=== PATIENT | female | born 1960 | race Caucasian/White ===

== ENCOUNTER 2020-03-16 17:15 | Inpatient (IN) | payer OTHER, BC ==
--- NOTE | 2020-03-16 18:28 | PDOC ---
History of Present Illness - General Chief Complaint: Pain, Acute Stated Complaint: PAIN IN LEGS Time Seen by Provider: 03/16/20 18:16 History Source: Patient - History of Present Illness Timing/Duration: other Past History - Medical History Allergies/Adverse Reactions: Allergies Allergy/AdvReac Type Severity Reaction Status Date / Time erythromycin base AdvReac Verified 03/16/20 17:47 - Reproductive History Is Patient Now?: No - Psycho-Social/Smoking History Smoking History: Never smoked Information on smoking cessation initiated: No - Substance Abuse Hx (Audit-C & DAST Scrn) How often the patient has a drink containing alcohol: Never Score: In Men: 4 or > Positive; In Women: 3 or > Positive: 0 Screen Result (Pos requires Nsg. Audit-10AR): Negative In the last yr the pt used illegal drug/Rx for NonMed reason: No Score: Yes response is considered Positive: 0 Screen Result (Positive result requires Nsg. DAST-10): Negative Review of Systems - Review of Systems Constitutional: No: Chills, Fever Respiratory: No: Cough, Shortness of Breath ABD/GI: No: Nausea, Vomiting, Abdominal cramping : No: Dysuria Neurological: No: Headache, Numbness, Paresthesia, Tingling, Weakness, Dizziness *Physical Exam - Vital Signs Last Vital Signs Temp Pulse Resp BP Pulse Ox 98.1 F 77 17 105/56 L 99 03/16/20 17:46 03/16/20 17:46 03/16/20 17:46 03/16/20 17:46 03/16/20 17:46 - Physical Exam 03/16/20 18:28 chronically ill lashay female, walking very slowly w/ assistance of boyfriend, into exam room General Appearance: Yes: Appropriately Dressed. No: Apparent Distress HEENT: positive: Normal Voice Neck: positive: Supple Respiratory/Chest: negative: Respiratory Distress Extremity: positive: Normal Inspection, Normal Range of Motion, Tender. n egative: Swelling Integumentary: positive: Dry, Warm Neurologic: positive: Fully Oriented, Alert, Normal Mood/Affect, Motor Strength 5/5 ED Treatment Course - LABORATORY CBC & Chemistry Diagram: 03/16/20 19:20 03/16/20 19:20 - RADIOLOGY Radiology Studies Ordered: Category Date Time Status CHEST X-RAY PORTABLE* [RAD] Stat Radiology 03/16/20 18:21 Ordered Medical Decision Making - Medical Decision Making 03/16/20 18:23 59 yo F, post menopausal, asthma, pulm sarcoids, not on steroids, MS dx in 2009, administer copaxone injection 3 times a week at home, resides in [place] and f/u with neuro there, has not been admitted for MS in last 2 years but was admitted at least once a year prior to that, presents with diffuse pain to bilateral upper and lower extremities that started 3 days ago and now difficulty ambulating. Also reports feeling "foggy", c/w her MS. Patient states the reason why she came to this ER for the first time is because she was staying with her boyfriend who resides in [place] see exam MS flare w/ difficult gait Not known to [facility] On Copaxone and resides in [place] -labs -neuro>steroids -admit 03/16/20 19:[address] Nam of neuro who recommends 1 dose of Solu-Medrol 250 IV and MRI brain (+/-) contrast. Pending labs to admit patient 03/16/20 20:23 UTI on labs, WBC wnl. Will tx w/ po abx, no prior sen on records here. Will admi t at this time Discharge - Discharge Information Problems reviewed: Yes Clinical Impression/Diagnosis: Multiple sclerosis exacerbation, Gait difficulty Extremity pain Qualifiers: Extremity pain location: unspecified extremity Qualified Code(s): M79.609 - Pain in unspecified limb UTI (urinary tract infection) Qualifiers: Urinary tract infection type: site unspecified Hematuria presence: without hematuria Qualified Code(s): N39.0 - Urinary tract infection, site not specified Condition: Stable - Admission Yes - Follow up/Referral Referrals: ON STAFF,NOT [Primary Care Provider] - - Patient Discharge Instructions - Post Discharge Activity
[2020-03-16] MEDS ORDERED: methylPREDNISolone NA SUCC 125 MG/2 ML VIAL IVPUSH ONE (19:32)
[2020-03-16 19:51] LABS: BASO % 1.2 % (0-2.0); EOS % 4.8 % (0-4.5); HEMOGLOBIN 14.2 GM/dL (10.7-15.3); LYMPH % 35.6 % (8-40); MCH 32.5 pg (25.7-33.7); MEAN CELL VOLUME 95.6 fl (80-96); MEAN PLT VOLUME 9.7 fl (7.5-11.1); MONO % 7.1 % (3.8-10.2); NEUT % 51.3 % (42.8-82.8); PLATELET COUNT 212 K/MM3 (134-434); RBC 4.39 M/mm3 (3.60-5.2); WHITE BLOOD COUNT 4.7 K/mm3 (4.0-10.0)
[2020-03-16 19:58] LABS: EPI CELLS 8 /uL (0-25.1); HYALINE CASTS 5 /uL (0-3.1); PH,URINE 5.5 (5.0-8.0); URINE APPEARANCE CLOUDY; URINE BACTERIA >9,000 /uL (0-1359); URINE BILIRUBIN NEGATIVE (NEGATIVE); URINE COLOR YELLOW; URINE GLUCOSE (UA) NEGATIVE (NEGATIVE); URINE KETONE NEGATIVE (NEGATIVE); URINE LEUK ESTERASE 2+ (NEGATIVE); URINE NITRITE POSITIVE (NEGATIVE); URINE PROTEIN NEGATIVE (NEGATIVE); URINE RBC 4 /uL (0-23.9); URINE UROBILINOGEN 0.2 mg/dL (0.2-1.0); URINE WBC 164 /uL (0-25.8)
[2020-03-16 20:11] LABS: ALBUMIN 4.2 g/dl (3.4-5.0); BILIRUBIN,TOTAL 0.5 mg/dL (0.2-1); BLOOD UREA NITROGEN 12.8 mg/dL (7-18); CALCIUM 9.4 mg/dL (8.5-10.1); CREATININE 0.9 mg/dL (0.55-1.3); POTASSIUM 4.6 mmol/L (3.5-5.1); TOT PROT 7.4 g/dl (6.4-8.2)
[2020-03-16] MEDS ORDERED: NITROFURANTOIN MACROCRYSTAL 50 MG CAPSULE (FP) PO SCH (20:30)
[2020-03-16] MEDS ORDERED: NITROFURANTOIN MACROCRYSTAL 50 MG CAPSULE (FP) ONE (20:31)
--- NOTE | 2020-03-16 21:00 | PN ---
Teaching Attending Note Name of Resident: Juliana Sandy ATTENDING PHYSICIAN STATEMENT I saw and evaluated the patient. I reviewed the resident's note and discussed the case with the resident. I agree with the resident's findings and plan as documented. SUBJECTIVE: Patient is a 59 year old woman with PMH of Multiple sclerosis (since 2009), Asthma and Pulmonary sarcoidosis who presents to the ER with diffuse upper and lower extremity pain for 3 days and now associated with difficulty ambulating. Also reports feeling "foggy" and had chills. Takes Copaxone injection 3 times a week at home for MS. Lives in [place] and is visiting her boyfriend in [place]. Has not been admitted for MS in last 2 years but was admitted at least once a year prior to that. Patient denies chest pain, shortness of breath, abdominal pain, headache, palpitations, dizziness, fever, nausea, vomiting, diarrhea, constipation, dysuria, frequency, urgency, melena, hematochezia or hematuria. Denies alcohol, tobacco or illicit drug use. No sick contacts or recent travels. Family history of heart disease in mother. OBJECTIVE: Alert Vital Signs Period Temp Pulse Resp BP Sys/Adams Pulse Ox Last 24 Hr 98.1 F 77 17 105/56 99 HEENT: No Jaundice, eye redness or discharge, PERRLA, EOMI. Normocephalic, atraumatic. External ears are normal and hearing is grossly intact. No nasal discharge. Neck: Supple, nontender. No palpable adenopathy or thyromegaly. No JVD Chest: Good effort. Clear to auscultation and percussion. Heart: Regular. No S3, rub or murmur Abdomen: Not distended, soft, nontender and no HSM. No rebound or guarding. Normal bowel sounds. Ext: Peripheral pulses intact. No leg edema. Skin: Warm and dry. No petechiae, rash or ecchymosis. Neuro: Alert. Oriented x3. CN 2-12 grossly intact. Sensation grossly intact in all four extremities and DTR are symmetric. Gait not tested for safety reasons. Psych: Appropriate mood and affect. Good insight. Abnormal Lab Results 03/16/20 03/16/20 03/16/20 19:20 19:20 19:20 Eosinophils % 4.8 H Chloride 110 H Anion Gap 5 L AST 13 L Urine Nitrite Positive H Ur Leukocyte Esterase 2+ H Current Medications Generic Name Dose Route Start Last Admin Trade Name Freq PRN Reason Stop Dose Admin Enoxaparin Sodium 40 mg 03/17/20 10:00 Lovenox - SQ DAILY ARANZA Ceftriaxone Sodium 1 gm/ 50 mls @ 100 mls/hr 03/17/20 10:00 Dextrose IVPB DAILY ARANZA ASSESSMENT AND PLAN: 1. Multiple sclerosis flare up/UTI - No acute abnormality on CXR. Official report of brain MRI pending. Will strive to get her prior MRI from [place] for comparison. ER staff consulted Neurology and patient started on Solumedrol 250 mg IV q 6 hours. Will give Protonix 40 mg po qd, treat UTI with IV Ceftriaxone 1 gm q 24 hours and implement fall precautions. Viral testing for COVID-19 ordered and patient placed on airborne, droplet and contact isolation. EKG shows sinus bradycardia at 58/minute, LVH and QTc 467 with no significant acute ischemic ST- T wave changes. No old EKG available for comparison. 2. DVT prophylaxis - Lovenox 40 mg SQ q 24 hours. 3. Advance directives - Full code
--- NOTE | 2020-03-16 21:01 | HP ---
CHIEF COMPLAINT: body aches PCP: not on staff, [place] HISTORY OF PRESENT ILLNESS: 59 yo F PMH MS , Pulmonary sarcoidosis, asthma presents to ED with diffuse body pains and weakness. Pt states that this is typically how she feels when she gets her MS flairs, her last flair was November 27 . Typically her MS flairs involve her upper extremities. she states that this time she is experiencing severe lower back, lower extremity pain. She takes Capoxone every 3 days- last taken on thursday. She follows up with physicians in [place] as that is where she is from. [facility]. ER course was notable for: (1) MRI brain (2)UA: + UTI (3)250 mg solumedrol Recent Travel:denies PAST MEDICAL HISTORY:see above PAST SURGICAL HISTORY: Family Hx: mother with congenital heart disease Social History: Smoking:denies Alcohol:denies Drugs: denies Allergies erythromycin base Adverse Reaction (Verified 03/16/20 17:47) HOME MEDICATIONS: REVIEW OF SYSTEMS CONSTITUTIONAL: Presant: weakness Absent: fever, chills, diaphoresis, malaise, loss of appetite, weight change HEENT: Absent: rhinorrhea, nasal congestion, throat pain, throat swelling, difficulty swallowing, mouth swelling, ear pain, eye pain, visual changes CARDIOVASCULAR: Absent: chest pain, syncope, palpitations, irregular heart rate, lightheadedness, peripheral edema RESPIRATORY: Absent: cough, shortness of breath, dyspnea with exertion, orthopnea, wheezing, stridor, hemoptysis GASTROINTESTINAL: Absent: abdominal pain, abdominal distension, nausea, vomiting, diarrhea, constipation, melena, hematochezia GENITOURINARY: Absent: dysuria, frequency, urgency, hesitancy, hematuria, flank pain, genital pain MUSCULOSKELETAL: Absent: myalgia, arthralgia, joint swelling, back pain, neck pain SKIN: Absent: rash, itching, pallor HEMATOLOGIC/IMMUNOLOGIC: Absent: easy bleeding, easy bruising, lymphadenopathy, frequent infections ENDOCRINE: Absent: unexplained weight gain, unexplained weight loss, heat intolerance, cold intolerance NEUROLOGIC: Absent: headache, focal weakness or paresthesias, dizziness, unsteady gait, seizure, mental status changes, bladder or bowel incontinence PHYSICAL EXAMINATION Vital Signs - 24 hr 03/16/20 17:46 Temperature 98.1 F Pulse Rate 77 Respiratory 17 Rate Blood Pressure 105/56 L O2 Sat by Pulse 99 Oximetry (%) GENERAL: Awake, alert, and fully oriented, in no acute distress. HEAD: Normal with no signs of trauma. EYES: Pupils equal, round and reactive to light, extraocular movements intact EARS, NOSE, THROAT: oropharynx clear without exudates. Moist mucous membranes. NECK: Normal range of motion, supple without lymphadenopathy, JVD, or masses. LUNGS: Breath sounds equal, clear to auscultation bilaterally. No accessory muscle use. HEART: Regular rate and rhythm, normal S1 and S2 without murmur, rub or gallop. ABDOMEN: Soft, nontender, not distended, normoactive bowel sounds, no guarding MUSCULOSKELETAL: No bony deformities or tenderness. No CVA tenderness. UPPER EXTREMITIES: 2+ pulses, warm, well-perfused. No cyanosis. No clubbing. No peripheral edema. LOWER EXTREMITIES: 2+ pulses, warm, well-perfused. No calf tenderness. No peripheral edema. NEUROLOGICAL: Cranial nerves II-XII intact. Normal speech. PSYCHIATRIC: Cooperative. Good eye contact. Appropriate mood and affect. SKIN: Warm, dry, normal turgor, no rashes or lesions noted, normal capillary refill. Laboratory Results - last 24 hr 03/16/20 03/16/20 03/16/20 19:20 19:20 19:20 WBC 4.7 RBC 4.39 Hgb 14.2 Hct 42.0 MCV 95.6 MCH 32.5 MCHC 34.0 RDW 13.0 Plt Count 212 MPV 9.7 Absolute Neuts (auto) 2.4 Neutrophils % 51.3 Lymphocytes % 35.6 Monocytes % 7.1 Eosinophils % 4.8 H Basophils % 1.2 Nucleated RBC % 0 Sodium 142 Potassium 4.6 Chloride 110 H Carbon Dioxide 27 Anion Gap 5 L BUN 12.8 Creatinine 0.9 Est GFR (CKD-EPI)AfAm 82.26 Est GFR (CKD-EPI)NonAf 70.98 Random Glucose 90 Calcium 9.4 Total Bilirubin 0.5 AST 13 L ALT 17 Alkaline Phosphatase 75 Total Protein 7.4 Albumin 4.2 Urine Color Yellow Urine Appearance Cloudy Urine pH 5.5 Ur Specific [place] 1.016 Urine Protein Negative Urine Glucose (UA) Negative Urine Ketones Negative Urine Blood Negative Urine Nitrite Positive H Urine Bilirubin Negative Urine Urobilinogen 0.2 Ur Leukocyte Esterase 2+ H Urine WBC (Auto) 164 Urine RBC (Auto) 4 Urine Casts (Auto) 5 U Epithel Cells (Auto) 8 Urine Bacteria (Auto) >9,000 Brain MRI: Multiple foci of increased signal in the periventricular white matter probably related to the known diagnosis of demyelination. None of these lesions enhance with contrast. There are no intra or extra-axial masses or collections. ASSESSMENT/PLAN: 59 yo F PMH MS, Pulmonary sarcoidosis, asthma presents to ED with diffuse body pains and weakness. admitted for acute MS flair diffuse body pains and weakness likely 2/2 Acute MS flair - c/w steroids as per neuro recs -Brain MRI noted above - neuro consulted. - will send covid 19 - will send TSH UTI -+UA - pending UCx - will start rocephin Asthma - currently Asymptomatic but continue to monitor - ventolin pump prn F/E/N - no standing fluids - monitor lytes - sodium controlled diet DVT ppx: lovenox GI ppx: protonix admit to medicine ATTENDING PHYSICIAN STATEMENT I saw and evaluated the patient. I reviewed the resident's note and discussed the case with the resident. I agree with the resident's findings and plan as documented. SUBJECTIVE: OBJECTIVE: ASSESSMENT AND PLAN:
[2020-03-16] MEDS ORDERED: KETOROLAC TROMETHAMINE 15 MG/ML VIAL IVPUSH ONE (23:32)
[2020-03-17] MEDS ORDERED: KETOROLAC TROMETHAMINE 15 MG/ML VIAL ONE (01:01)
[2020-03-17 06:09] LABS: BASO % 0.5 % (0-2.0); EOS % 0.1 % (0-4.5); HEMOGLOBIN 13.9 GM/dL (10.7-15.3); LYMPH % 19.1 % (8-40); MCH 32.1 pg (25.7-33.7); MCHC 33.9 g/dl (32.0-36.0); MEAN CELL VOLUME 94.8 fl (80-96); MEAN PLT VOLUME 9.5 fl (7.5-11.1); MONO % 1.1 % (3.8-10.2); NEUT % 79.2 % (42.8-82.8); PLATELET COUNT 201 K/MM3 (134-434); RBC 4.32 M/mm3 (3.60-5.2); RDW 13.1 % (11.6-15.6); WHITE BLOOD COUNT 6.7 K/mm3 (4.0-10.0)
[2020-03-17 06:42] LABS: ALBUMIN 4.1 g/dl (3.4-5.0); BILIRUBIN,TOTAL 0.5 mg/dL (0.2-1); BLOOD UREA NITROGEN 16.5 mg/dL (7-18); CALCIUM 9.2 mg/dL (8.5-10.1); CREATININE 0.8 mg/dL (0.55-1.3); MAGNESIUM 2.2 mg/dL (1.8-2.4); PHOSPHOROUS 4.1 mg/dL (2.5-4.9); TOT PROT 7.3 g/dl (6.4-8.2)
--- NOTE | 2020-03-17 08:52 | CON.NEURO ---
Consult Consult Specialty:: [facility] Neurology Referred by:: ER Reason for Consultation:: MS falre - History of Present Illness History of Present Illness: 59 years old woman with history of RR-MS on immunmod Copaxone 40 mg q3w History of Scarcoidosis From [place] come in with cc of weakness and arm and leg numbness No eye pain Mild urinary hesitancy and no urinary frequency Admitted for MS flare - History Source History Provided By: Patient Limitations to Obtaining History: No Limitations - Past Medical History ...: No - Smoking History Smoking history: Never smoked Home Medications - Allergies Allergies/Adverse Reactions: Allergies Allergy/AdvReac Type Severity Reaction Status Date / Time erythromycin base AdvReac Verified 03/16/20 17:47 Family Medical History Family History: Unremarkable Review of Systems - Review of Systems Neurological: reports: Dizziness, Headache, Incoordination, Numbness, Erik thesia, Pre-Existing Deficit Physical Exam-Neuro Vital Signs: Vital Signs Temperature 97.9 F 03/17/20 07:09 Pulse Rate 78 03/17/20 07:09 Respiratory Rate 16 03/17/20 08:14 Blood Pressure 111/73 03/17/20 07:09 O2 Sat by Pulse Oximetry (%) 97 03/17/20 08:14 Constitutional: Yes: Well Nourished Neck: Yes: WNL Cardiovascular: Yes: WNL Labs: CBC, BMP 03/17/20 05:30 03/17/20 05:30 - Neuro Exam Level Of Consciousness: Yes: Oriented to Person, Oriented to Place, Oriented to Time Eyes: Yes: PERRLA Speech: WNL Dominant Hand: Right Cranial Nerves II-XII Intact: Yes Gag: Present DTR's: 1+ Left Bicep, 1+ Right Bicep, 1+ Left Tricep, 1+ Right Tricep Imaging - Results Cat Scan: Image Reviewed Problem List - Problems (1) Gait difficulty Code(s): R26.9 - UNSPECIFIED ABNORMALITIES OF GAIT AND MOBILITY (2) Multiple sclerosis exacerbation Code(s): G35 - MULTIPLE SCLEROSIS Assessment/Plan 1. Fall precautions 2. DVT prophylaxis 3. MRI brain with Peterson and without Peterson 4. PT 5. Solumedrol 250 mg IV q6 hours 6. BGM q shift 7. Continue Copaxone Thank you Darrell Anderson MD neurology [phone]
--- NOTE | 2020-03-17 08:57 | EKG ---
Test Reason : Blood Pressure : / mmHG Vent. Rate : 058 BPM Atrial Rate : 058 BPM P-R Int : 148 ms QRS Dur : 128 ms QT Int : 476 ms P-R-T Axes : 070 054 072 degrees QTc Int : 467 ms SINUS BRADYCARDIA LEFT VENTRICULAR HYPERTROPHY WITH QRS WIDENING AND REPOLARIZATION ABNORMALITY ABNORMAL ECG NO PREVIOUS ECGS AVAILABLE Confirmed by Shanell Maki ([id number]) on 03/17/2020 8:57:03 AM Referred By: Confirmed By:Shanell Maki
[2020-03-17] MEDS ORDERED: methylPREDNISolone NA SUCC 125 MG/2 ML VIAL IVPB SCH (10:00)
[2020-03-17] MEDS ORDERED: CEFTRIAXONE 1 GM/50 ML BAG ONE (10:24)
[2020-03-17] MEDS ORDERED: ENOXAPARIN NA (PORCINE) 40 MG/0.4 ML DISP.SYRIN SQ ONE (10:24)
[2020-03-17] MEDS ORDERED: PANTOPRAZOLE 40 MG TABLET ONE (10:24)
--- NOTE | 2020-03-17 10:33 | PN ---
Physical Exam: SUBJECTIVE: Patient seen and examined at bedside in ED. She was admitted overnight. She currently is experiencing similar LE weakness to when she first came to the hospital. Otherwise ROS neg. OBJECTIVE: Vital Signs Period Temp Pulse Resp BP Sys/Adams Pulse Ox Last 24 Hr 97.6 F-98.1 F 64-82 16-18 105-137/56-85 97-100 GENERAL: The patient is awake, alert, and fully oriented, in no acute distress. HEAD: Normal with no signs of trauma. EYES: PERRL, extraocular movements intact, sclera anicteric, conjunctiva clear. No ptosis. ENT: Ears normal, nares patent, oropharynx clear without exudates, moist mucous membranes. NECK: Trachea midline, full range of motion, supple. LUNGS: Breath sounds equal, clear to auscultation bilaterally, no wheezes, no crackles, no accessory muscle use. HEART: Regular rate and rhythm, S1, S2 without murmur, rub or gallop. ABDOMEN: Soft, nontender, nondistended, normoactive bowel sounds, no guarding, no rebound, no hepatosplenomegaly, no masses. EXTREMITIES: 2+ pulses, warm, well-perfused, no edema. NEUROLOGICAL: : Cranial nerves II through XII grossly intact. Strength 5/5 in UE and LE in both distal and proximal flexors. Brachial reflex 2+ BL. Patellar reflex 2+ BL. No dysdiadochokinesia. FTN NEG. Babinski NEG. Normal speech. Active movement 2/5 in LE during exam but pt later demonstrates she is able to move w/o limitation later in the exam SKIN: Warm, dry, normal turgor, no rashes or lesions noted Laboratory Results - last 24 hr 03/16/20 03/16/20 03/16/20 19:20 19:20 19:20 WBC 4.7 RBC 4.39 Hgb 14.2 Hct 42.0 MCV 95.6 MCH 32.5 MCHC 34.0 RDW 13.0 Plt Count 212 MPV 9.7 Absolute Neuts (auto) 2.4 Neutrophils % 51.3 Lymphocytes % 35.6 Monocytes % 7.1 Eosinophils % 4.8 H Basophils % 1.2 Nucleated RBC % 0 Sodium 142 Potassium 4.6 Chloride 110 H Carbon Dioxide 27 Anion Gap 5 L BUN 12.8 Creatinine 0.9 Est GFR (CKD-EPI)AfAm 82.26 Est GFR (CKD-EPI)NonAf 70.98 Random Glucose 90 Calcium 9.4 Phosphorus Magnesium Total Bilirubin 0.5 AST 13 L ALT 17 Alkaline Phosphatase 75 Total Protein 7.4 Albumin 4.2 TSH Urine Color Yellow Urine Appearance Cloudy Urine pH 5.5 Ur Specific [place] 1.016 Urine Protein Negative Urine Glucose (UA) Negative Urine Ketones Negative Urine Blood Negative Urine Nitrite Positive H Urine Bilirubin Negative Urine Urobilinogen 0.2 Ur Leukocyte Esterase 2+ H Urine WBC (Auto) 164 Urine RBC (Auto) 4 Urine Casts (Auto) 5 U Epithel Cells (Auto) 8 Urine Bacteria (Auto) >9,000 Urine HCG, Qual 03/17/20 03/17/20 03/17/20 05:30 05:30 07:40 WBC 6.7 RBC 4.32 Hgb 13.9 Hct 41.0 MCV 94.8 MCH 32.1 MCHC 33.9 RDW 13.1 Plt Count 201 MPV 9.5 Absolute Neuts (auto) 5.3 Neutrophils % 79.2 D Lymphocytes % 19.1 D Monocytes % 1.1 L D Eosinophils % 0.1 D Basophils % 0.5 Nucleated RBC % 0 Sodium 139 Potassium 4.0 Chloride 105 Carbon Dioxide 25 Anion Gap 8 BUN 16.5 Creatinine 0.8 Est GFR (CKD-EPI)AfAm 94.85 Est GFR (CKD-EPI)NonAf 81.84 Random Glucose 117 H Calcium 9.2 Phosphorus 4.1 Magnesium 2.2 Total Bilirubin 0.5 AST 12 L ALT 16 Alkaline Phosphatase 76 Total Protein 7.3 Albumin 4.1 TSH 0.39 Urine Color Urine Appearance Urine pH Ur Specific [place] Urine Protein Urine Glucose (UA) Urine Ketones Urine Blood Urine Nitrite Urine Bilirubin Urine Urobilinogen Ur Leukocyte Esterase Urine WBC (Auto) Urine RBC (Auto) Urine Casts (Auto) U Epithel Cells (Auto) Urine Bacteria (Auto) Urine HCG, Qual Negative Active Medications Generic Name Dose Route Start Last Admin Trade Name Freq PRN Reason Stop Dose Admin Enoxaparin Sodium 40 mg 03/17/20 10:00 Lovenox - SQ DAILY [facility] Ceftriaxone Sodium 1 gm/ 50 mls @ 100 mls/hr 03/17/20 10:00 Dextrose IVPB DAILY [facility] Methylprednisolone Sodium Succinate 250 mg 03/17/20 10:00 Solu-Medrol - IVPB BID ARANZA Pantoprazole Sodium 40 mg 03/17/20 10:00 Protonix - PO DAILY ARANZA ASSESSMENT/PLAN: 59 y/o female PMH asthma, sarcoidosis, and MS c/o BL LE weakness and admitted for acute MS flair. # BL LE weakness ML 2/2 acute MS flair - neuro consulted. - Solumedrol 250 mg IV q6h - Cont. home copoxane 40 mg (M, W, F). Last taken Monday 03/12 (reports forgetting to take meds W and F). She does not have her meds on her and family are unable to bring it to her from her home in [place]. - BGM q shift - f/u covid 19 - TSH WNL # UTI - f/u UCx - Rocephin 1 gm qd # Asthma - Albuterol metered dose 2 puff PRN for SOB # FEN - PO - Cont. to monitor - Regular diet # DVT ppx - Lovenox # Disposition - Med/surg Visit type - Emergency Visit Emergency Visit: No - New Patient This patient is new to me today: Yes Date on this admission: 03/17/20 - Critical Care Critical Care patient: No ATTENDING PHYSICIAN STATEMENT I saw and evaluated the patient. I reviewed the resident's note and discussed the case with the resident. I agree with the resident's findings and plan as documented. SUBJECTIVE: OBJECTIVE: ASSESSMENT AND PLAN:
[2020-03-17] MEDS: PANTOPRAZOLE 40 MG TABLET PO SCH (10:38)
[2020-03-17] MEDS: ENOXAPARIN NA (PORCINE) 40 MG/0.4 ML DISP.SYRIN SQ SCH (10:38)
[2020-03-17] MEDS: CEFTRIAXONE 1 GM in DEXTROSE 5%-WATER - 50 ML IVPB SCH (11:27)
[2020-03-17 12:01] LABS: ALBUMIN 3.7 g/dl (3.4-5.0); BILIRUBIN,TOTAL 0.5 mg/dL (0.2-1); BLOOD UREA NITROGEN 21.3 mg/dL (7-18); CALCIUM 8.8 mg/dL (8.5-10.1); CREATININE 0.8 mg/dL (0.55-1.3); MAGNESIUM 2.1 mg/dL (1.8-2.4); POTASSIUM 3.8 mmol/L (3.5-5.1); TOT PROT 6.6 g/dl (6.4-8.2)
--- NOTE | 2020-03-17 12:02 | PN ---
Teaching Attending Note Name of Resident: Woody Fernando ATTENDING PHYSICIAN STATEMENT I saw and evaluated the patient. I reviewed the resident's note and discussed the case with the resident. I agree with the resident's findings and plan as documented. SUBJECTIVE: no fever or chills. has generalized weakness and fatigue. ppoor po intake before coming, now hungrey and wants to eat. no dysuria , no abd pain . OBJECTIVE: NAD ,a wake, alert, cooeprative , thin CV: RRR, no MRG Lungs: CTAB ext : No edema or erythema, on uper or lower extremities proximally and distally abd: soft, NT, ND , NL BS Neuro : EOMI, no facial droop, tongue at mid line , nl facial sensation . strength : 5/5 in upper extremities proximally and distally. RLE , hip flexion 3/5 limited by pain in back . limited cooperation with knee flexion and extension , 3/5 LLE: 3/5 hip flexion also limited due to pain. limited cooperation with knee flexion and extension , but 3/5 2+ knee jerk and biceps reflexes. nl nose to finger ASSESSMENT AND PLAN: 59 y/o lady wit hh/o asthma, pulm sarcoidosis and MS , who presented with generalized weakness and mainly in LEs , and pain in LE. 1- LE weakness, and pain. MS flare per neuro eval. - MRI report reviewed. - cont steroids - cont copaxone 3/week. will confirm when she is due - PT eval 2- h/o Asthma, stabl 3- Possible UTI: given fatigue , poor po intake, and pain and aches, will treat pending urine cx - cont ceftriaxone and follow urine cx. - oral hydration 4- DVT PX : Lovenox
[2020-03-17] MEDS: methylPREDNISolone NA SUCC 125 MG/2 ML VIAL IVPB SCH ×2 (15:39→21:09)
[2020-03-17] MEDS ORDERED: ACETAMINOPHEN 325 MG TABLET (FP) PO ONE (20:02)
[2020-03-17] MEDS ORDERED: methylPREDNISolone NA SUCC 125 MG/2 ML VIAL ONE (21:04)
[2020-03-18] MEDS ORDERED: clonazePAM 0.5 MG TABLET PO SCH ×2 (00:19→22:00)
[2020-03-18] MEDS ORDERED: traZODone HCL 150 MG TABLET PO SCH ×2 (00:19→22:00)
[2020-03-18] MEDS ORDERED: traZODone HCL 100 MG TABLET (FP) PO ONE (00:22)
[2020-03-18] MEDS ORDERED: clonazePAM 0.5 MG TABLET PO ONE (00:22)
[2020-03-18] MEDS: BACLOFEN 10 MG TABLET (FP) PO SCH ×5 (00:27→22:10)
[2020-03-18 03:55] VITALS: BMI 18.3
[2020-03-18] MEDS: methylPREDNISolone NA SUCC 125 MG/2 ML VIAL IVPB SCH ×4 (04:02→20:35)
[2020-03-18 08:32] LABS: BASO % 0.2 % (0-2.0); HEMATOCRIT 40.3 % (32.4-45.2); HEMOGLOBIN 13.6 GM/dL (10.7-15.3); LYMPH % 10.9 % (8-40); MCH 32.2 pg (25.7-33.7); MCHC 33.8 g/dl (32.0-36.0); MEAN CELL VOLUME 95.1 fl (80-96); MEAN PLT VOLUME 9.8 fl (7.5-11.1); MONO % 0.7 % (3.8-10.2); NEUT % 88.2 % (42.8-82.8); PLATELET COUNT 208 K/MM3 (134-434); RBC 4.24 M/mm3 (3.60-5.2); RDW 13.1 % (11.6-15.6); WHITE BLOOD COUNT 9.7 K/mm3 (4.0-10.0)
[2020-03-18] MEDS ORDERED: DEXTROSE 5%-WATER - 50 ML IVPB ONE (09:43)
[2020-03-18] MEDS ORDERED: cefTRIAXone SODIUM 1 GM VIAL ONE (09:43)
[2020-03-18] MEDS: ENOXAPARIN NA (PORCINE) 40 MG/0.4 ML DISP.SYRIN SQ SCH (09:51)
[2020-03-18] MEDS: CEFTRIAXONE 1 GM in DEXTROSE 5%-WATER - 50 ML IVPB SCH (09:51)
[2020-03-18] MEDS: PANTOPRAZOLE 40 MG TABLET PO SCH (09:52)
[2020-03-18] MEDS ORDERED: ACETAMINOPHEN/CAFFEINE/BUTALBITAL 1 TAB PO ONE (14:36)
--- NOTE | 2020-03-18 14:36 | PN ---
Progress Note (short form) - Note Progress Note: Subjective: no pain , no fever . feel strong and could walk today has EUCEDA . similar to her migraine Objective: Vital Signs: Last Vital Signs Temp Pulse Resp BP Pulse Ox 98.0 F 76 20 153/87 100 03/18/20 11:00 03/18/20 11:00 03/18/20 11:00 03/18/20 11:00 03/18/20 11:00 Laboratory Results - last 24 hr 03/17/20 03/18/20 02:48 07:50 WBC 9.7 RBC 4.24 Hgb 13.6 Hct 40.3 MCV 95.1 MCH 32.2 MCHC 33.8 RDW 13.1 Plt Count 208 MPV 9.8 Absolute Neuts (auto) 8.6 H Neutrophils % 88.2 H Lymphocytes % 10.9 D Monocytes % 0.7 L Eosinophils % 0.0 D Basophils % 0.2 Nucleated RBC % 0 COVID-19 (PAM) Not detected NAD CV: RRR, no MRG Lungs: CTAB Ext : No edema or erythema, on upper or lower extremities proximally and distally abd: soft, NT, ND , NL BS Neuro : EOMI, no facial droop, tongue at mid line , nl facial sensation . strength : 5/5 in upper extremities proximally and distally. RLE , hip flexion 4/5 knee flexion and extension 3/5 LLE: 4/5 hip flexion knee flexion and extension 3/5 2+ knee jerk and biceps reflexes. ASSESSMENT AND PLAN: 59 y/o lady wit hh/o asthma, pulm sarcoidosis and MS , who presented with generalized weakness and mainly in LEs , and pain in LE. 1- MS farpranay : strength has improved - cont steroids - cont copaxone 3/week. she will bring her own - PT eval 3- pyuria with no dysuria : urine cx with low colonies. dc Abx 4- Migraine , give fioricet 5- Insomnia: give trazodone and resume her home klonapine dvt px Visit type - Emergency Visit Emergency Visit: Yes ED Registration Date: 03/16/20 Care time: The patient presented to the Emergency Department on the above date and was hospitalized for further evaluation of their emergent condition. - New Patient This patient is new to me today: No - Critical Care Critical Care patient: No
[2020-03-18] MEDS: PATIENT'S OWN MEDICATION (NON-FORMULARY) (Glatiramer Acetate [Copaxone] 40 MG) SQ SCH (19:17)
[2020-03-18] MEDS: clonazePAM 0.5 MG TABLET PO SCH (22:10)
[2020-03-18] MEDS: traZODone HCL 100 MG TABLET (FP) PO SCH (22:10)
[2020-03-19] MEDS: methylPREDNISolone NA SUCC 125 MG/2 ML VIAL IVPB SCH ×4 (03:13→21:22)
[2020-03-19] MEDS: ENOXAPARIN NA (PORCINE) 40 MG/0.4 ML DISP.SYRIN SQ SCH (09:09)
[2020-03-19] MEDS: PANTOPRAZOLE 40 MG TABLET PO SCH (09:09)
[2020-03-19] MEDS: BACLOFEN 10 MG TABLET (FP) PO SCH ×4 (09:09→21:25)
[2020-03-19] MEDS ORDERED: traMADol HCL 50 MG TABLET PO PRN (11:51)
[2020-03-19] MEDS: POLYETHYLENE GLYCOL 3350 119 GM BTL PO SCH (12:51)
[2020-03-19] MEDS: traMADol HCL 50 MG TABLET PO PRN ×2 (14:02→21:22)
[2020-03-19] MEDS: FLUoxetine HCL 20 MG CAPSULE PO SCH (14:51)
--- NOTE | 2020-03-19 15:30 | PN ---
Physical Exam: SUBJECTIVE: Patient seen and examined at bedside. She reports urinary incontinence, 3-4x overnight. Improvement of her sleep. OBJECTIVE: Vital Signs Period Temp Pulse Resp BP Sys/Adams Pulse Ox Last 24 Hr 97.8 F-98.3 F 80-92 18-20 106-155/66-93 95-96 GENERAL: AAOx3, in no acute distress HEENT: NCAT, PERRLA, EOMI, sclera anicteric, conjunctiva clear, oropharynx clear w/o exudates. MMM. NECK: Normal ROM, supple, no lymphadenopathy, JVD, or masses LUNGS: CTABL no wheezes/ rhonchi/ rales. No distress, speaks in full sentences. No increased work of breathing. HEART: RRR, normal S1 S2, no M/R/G, peripheral pulses 2+ and equal b/l ABDOMEN: Soft, non-tender, + BS. No guarding or rebound. No hepatomegaly or splenomegaly. MSK: ROM WNL, NO CVA tenderness EXTREMITIES: Normal inspection. No peripheral edema. No clubbing or cyanosis. NEUROLOGICAL: CN II-XII intact. Normal speech, gait not observed, no focal sensorimotor deficits. Strength : 5/5 b/l UE, RLE- 4/5 with hip flexion, 4/5 knee flexion/extension, LLE-4/5 with hip flexion, 4/5 with knee flexion/extension, DTEs +2 in all extremities PSYCH: Normal mood, normal affect. SKIN: Warm, Dry, normal turgor, no rashes or lesions noted Laboratory Results - last 24 hr 03/18/20 03/19/20 16:47 06:30 POC Glucometer 162 157 Active Medications Generic Name Dose Route Start Last Admin Trade Name Freq PRN Reason Stop Dose Admin Baclofen 10 mg 03/18/20 00:18 03/19/20 14:02 Lioresal - PO 10 mg QID ARANZA Administration Clonazepam 0.75 mg 03/18/20 22:00 03/18/20 22:10 Klonopin - PO 0.75 mg HS ARANZA Administration Enoxaparin Sodium 40 mg 03/17/20 10:00 03/19/20 09:09 Lovenox - SQ 40 mg DAILY ARANZA Administration Fluoxetine HCl 40 mg 03/19/20 14:30 03/19/20 14:51 Prozac - PO 40 mg DAILY ARANZA Administration Methylprednisolone Sodium Succinate 250 mg 03/17/20 15:00 03/19/20 14:51 Solu-Medrol - IVPB 250 mg Q6H-IV ARANZA Administration Non-Formulary Medication 40 mg 03/18/20 17:45 03/18/20 19:17 Glatiramer Acetate [Copaxone] SQ 40 mg SuTuTh@1000 ARANZA Administration Pantoprazole Sodium 40 mg 03/17/20 10:00 03/19/20 09:09 Protonix - PO 40 mg DAILY ARANZA Administration Polyethylene Glycol 17 gm 03/19/20 11:45 03/19/20 12:51 Miralax (For Daily Use) - PO 17 grams DAILY ARANZA Administration Senna 1 tab 03/19/20 22:00 Senna - PO HS ARANZA Tramadol HCl 50 mg 03/19/20 11:51 03/19/20 14:02 Ultram - PO 50 mg Q6H PRN Administration PAIN LEVEL 6-10 Trazodone HCl 100 mg 03/18/20 22:00 03/18/20 22:10 Desyrel - PO 100 mg HS ARANZA Administration ASSESSMENT/PLAN: 59 y/o female PMH MS, asthma, and sarcoidosis, presented with BL LE pain and weakness, admitted for acute MS flair. # BL LE weakness and pain - most likely 2/2 an acute MS flair - neuro following, recs appreciated Solumedrol 250 mg IV q6h - Continue home meds: Copaxone, 3days/week - PT evaluated today # Ua suggestive of a UTI - UCx: strep agalactia GB, 30,000-40,000 CFU, low colonies - started on Rocephin in ER, d/c'd abx due to low number of CFU #Migrain - Given fioricet without any relief, started Tramadol #Insomnia - Continue trazodone, klonapine FEN - No standing fluids - Continue to monitor electrolytes - Regular diet DVT ppx - Lovenox Sq Disposition - Continue to monitor in MS, DC planning Visit type - Emergency Visit Emergency Visit: Yes ED Registration Date: 03/16/20 Care time: The patient presented to the Emergency Department on the above date and was hospitalized for further evaluation of their emergent condition. - New Patient This patient is new to me today: No - Critical Care Critical Care patient: No - Discharge Referral Referred to [facility] No ATTENDING PHYSICIAN STATEMENT I saw and evaluated the patient. I reviewed the resident's note and discussed the case with the resident. I agree with the resident's findings and plan as documented. SUBJECTIVE: OBJECTIVE: ASSESSMENT AND PLAN:
[2020-03-19] MEDS ORDERED: amLODIPine BESYLATE 2.5 MG TABLET (FP) PO ONE (18:36)
--- NOTE | 2020-03-19 18:38 | PN ---
Teaching Attending Note Name of Resident: Darryn Villegas ATTENDING PHYSICIAN STATEMENT I saw and evaluated the patient. I reviewed the resident's note and discussed the case with the resident. I agree with the resident's findings and plan as documented. SUBJECTIVE: No fever or chills. no EUCEDA. feels stronger . has generalized pain. requests her prozac . strength in LE is better OBJECTIVE: NAD CV: RRR, no MRG Lungs: CTAB Ext : No edema or erythema, on upper or lower extremities Neuro : EOMI, no facial droop, tongue at mid line , nl facial sensation . strength : 5/5 in upper extremities proximally and distally. RLE , hip flexion 4/5 knee flexion and extension 4/5 LLE: 4/5 hip flexion knee flexion and extension 4/5 2+ knee jerk and biceps reflexes. Nl sensation to light touch ASSESSMENT AND PLAN: 59 y/o lady wit hh/o asthma, pulm sarcoidosis and MS , who presented with generalized weakness and mainly in LEs , and pain in LE. 1- MS fare : strength has improved - cont steroids . team left message for neuro to discuss - cont copaxone 3/week. - cont PT eval 3- pyuria with no dysuria : urine cx with low colonies. dc Abx 4- give tramadole for pain 5- Insomnia: give trazodone an her home klonapine 6- depression , resume her prozac 7- elevated sugars and HTN due to juan luis dose steroids, monitor sugar and if needed will give SSI . give a dose of 2.5 mg of norvasc for HTn. 8- constipation : start bowel regimen dvt px dispo : depends on when we switch to po steroids
[2020-03-19] MEDS: clonazePAM 0.5 MG TABLET PO SCH (21:25)
[2020-03-19] MEDS: traZODone HCL 100 MG TABLET (FP) PO SCH (21:25)
[2020-03-19] MEDS ORDERED: SENNOSIDES 8.6MG TABLET (FP) PO SCH (22:00)
[2020-03-20] MEDS: methylPREDNISolone NA SUCC 125 MG/2 ML VIAL IVPB SCH ×4 (01:59→23:39)
[2020-03-20 08:46] LABS: BASO % 0.3 % (0-2.0); HEMATOCRIT 38.4 % (32.4-45.2); HEMOGLOBIN 13.1 GM/dL (10.7-15.3); LYMPH % 1.4 % (8-40); MCH 32.9 pg (25.7-33.7); MCHC 34.3 g/dl (32.0-36.0); MEAN CELL VOLUME 95.9 fl (80-96); MEAN PLT VOLUME 10.3 fl (7.5-11.1); MONO % 2.3 % (3.8-10.2); PLATELET COUNT 158 K/MM3 (134-434); RDW 13.2 % (11.6-15.6); WHITE BLOOD COUNT 11.6 K/mm3 (4.0-10.0)
[2020-03-20] MEDS ORDERED: PT OWN MED DRAWER 7, Y5N ONE (08:54)
[2020-03-20] MEDS: traMADol HCL 50 MG TABLET PO PRN (08:57)
[2020-03-20] MEDS: FLUoxetine HCL 20 MG CAPSULE PO SCH (09:00)
[2020-03-20] MEDS: ENOXAPARIN NA (PORCINE) 40 MG/0.4 ML DISP.SYRIN SQ SCH (09:00)
[2020-03-20] MEDS: PANTOPRAZOLE 40 MG TABLET PO SCH (09:00)
[2020-03-20] MEDS: BACLOFEN 10 MG TABLET (FP) PO SCH ×4 (09:00→23:41)
[2020-03-20 09:06] LABS: ALBUMIN 3.7 g/dl (3.4-5.0); BILIRUBIN,TOTAL 0.4 mg/dL (0.2-1); BLOOD UREA NITROGEN 20.4 mg/dL (7-18); CALCIUM 9.1 mg/dL (8.5-10.1); CREATININE 0.9 mg/dL (0.55-1.3); MAGNESIUM 2.4 mg/dL (1.8-2.4); PHOSPHOROUS 3.2 mg/dL (2.5-4.9); POTASSIUM 3.6 mmol/L (3.5-5.1)
[2020-03-20] MEDS: POLYETHYLENE GLYCOL 3350 119 GM BTL PO SCH ×2 (10:02→23:43)
[2020-03-20 10:04] LABS: ANISOCYTOSIS 0; MACROCYTOSIS 0; PLATELET ESTIMATE DECREASED
[2020-03-20] MEDS: PATIENT'S OWN MEDICATION (NON-FORMULARY) (Glatiramer Acetate [Copaxone] 40 MG) SQ SCH (15:49)
--- NOTE | 2020-03-20 17:11 | PN ---
Physical Exam: SUBJECTIVE: Patient seen and examined at bedside, complains of constipation for 2 days, denies any abdominal pain, fever, chills, nausea, vomiting. OBJECTIVE: Vital Signs Period Temp Pulse Resp BP Sys/Adams Pulse Ox Last 24 Hr 97.8 F-98.5 F 75-95 18-22 136-169/72-97 92-97 GENERAL: AAOx3, in no acute distress HEENT: NCAT, PERRLA, EOMI, sclera anicteric, conjunctiva clear, oropharynx clear w/o exudates. MMM. NECK: Normal ROM, supple, no lymphadenopathy, JVD, or masses LUNGS: CTABL no wheezes/ rhonchi/ rales. No distress, speaks in full sentences. No increased work of breathing. HEART: RRR, normal S1 S2, no M/R/G, peripheral pulses 2+ and equal b/l ABDOMEN: Soft, non-tender, + BS. No guarding or rebound. No hepatomegaly or splenomegaly. MSK: ROM WNL, NO CVA tenderness EXTREMITIES: Normal inspection. No peripheral edema. No clubbing or cyanosis. NEUROLOGICAL: CN II-XII intact. Normal speech, gait not observed, no focal sensorimotor deficits. Strength : 5/5 b/l UE, RLE- 4/5 with hip flexion, 4/5 knee flexion/extension, LLE-4/5 with hip flexion, 4/5 with knee flexion/extens ion, DTEs +2 in all extremities PSYCH: Normal mood, normal affect. SKIN: Warm, Dry, normal turgor, no rashes or lesions noted Laboratory Results - last 24 hr 03/19/20 03/20/20 03/20/20 17:23 06:32 08:05 WBC 11.6 H RBC 4.00 Hgb 13.1 Hct 38.4 MCV 95.9 MCH 32.9 MCHC 34.3 RDW 13.2 Plt Count 158 D MPV 10.3 Absolute Neuts (auto) 11.1 H Neutrophils % 96.0 H Neutrophils % (Manual) 93.1 H Band Neutrophils % 2.0 Lymphocytes % 1.4 L D Lymphocytes % (Manual) 1.0 L Monocytes % 2.3 L D Monocytes % (Manual) 4 Eosinophils % 0.0 Eosinophils % (Manual) 0.0 Basophils % 0.3 Basophils % (Manual) 0.0 Myelocytes % (Man) 0 Promyelocytes % (Man) 0 Blast Cells % (Manual) 0 Nucleated RBC % 0 Metamyelocytes 0 Hypochromia 0 Platelet Estimate Decreased Polychromasia 0 Poikilocytosis 0 Anisocytosis 0 Microcytosis 0 Macrocytosis 0 Sodium Potassium Chloride Carbon Dioxide Anion Gap BUN Creatinine Est GFR (CKD-EPI)AfAm Est GFR (CKD-EPI)NonAf POC Glucometer 150 154 Random Glucose Calcium Phosphorus Magnesium Total Bilirubin AST ALT Alkaline Phosphatase Total Protein Albumin 03/20/20 08:05 WBC RBC Hgb Hct MCV MCH MCHC RDW Plt Count MPV Absolute Neuts (auto) Neutrophils % Neutrophils % (Manual) Band Neutrophils % Lymphocytes % Lymphocytes % (Manual) Monocytes % Monocytes % (Manual) Eosinophils % Eosinophils % (Manual) Basophils % Basophils % (Manual) Myelocytes % (Man) Promyelocytes % (Man) Blast Cells % (Manual) Nucleated RBC % Metamyelocytes Hypochromia Platelet Estimate Polychromasia Poikilocytosis Anisocytosis Microcytosis Macrocytosis Sodium 140 Potassium 3.6 Chloride 105 Carbon Dioxide 25 Anion Gap 10 BUN 20.4 H Creatinine 0.9 Est GFR (CKD-EPI)AfAm 82.26 Est GFR (CKD-EPI)NonAf 70.98 POC Glucometer Random Glucose 143 H Calcium 9.1 Phosphorus 3.2 Magnesium 2.4 Total Bilirubin 0.4 AST 15 ALT 29 Alkaline Phosphatase 59 Total Protein 7.0 Albumin 3.7 Active Medications Generic Name Dose Route Start Last Admin Trade Name Freq PRN Reason Stop Dose Admin Baclofen 10 mg 03/18/20 00:18 03/20/20 15:47 Lioresal - PO 10 mg QID ARANZA Administration Clonazepam 0.75 mg 03/18/20 22:00 03/19/20 21:25 Klonopin - PO 0.75 mg HS ARANZA Administration Enoxaparin Sodium 40 mg 03/17/20 10:00 03/20/20 09:00 Lovenox - SQ 40 mg DAILY ARANZA Administration Fluoxetine HCl 40 mg 03/19/20 14:30 03/20/20 09:00 Prozac - PO 40 mg DAILY ARANZA Administration Methylprednisolone Sodium Succinate 250 mg 03/17/20 15:00 03/20/20 15:47 Solu-Medrol - IVPB 250 mg Q6H-IV ARANZA Administration Non-Formulary Medication 40 mg 03/18/20 17:45 03/20/20 15:49 Glatiramer Acetate [Copaxone] SQ 40 mg SuTuTh@1000 ARANZA Administration Pantoprazole Sodium 40 mg 03/17/20 10:00 03/20/20 09:00 Protonix - PO 40 mg DAILY ARANZA Administration Polyethylene Glycol 17 gm 03/20/20 22:00 Miralax (For Daily Use) - PO BID ARANZA Senna 1 tab 03/20/20 22:00 Senna - PO BID ARANZA Tramadol HCl 50 mg 03/19/20 11:51 03/20/20 08:57 Ultram - PO 50 mg Q6H PRN Administration PAIN LEVEL 6-10 Trazodone HCl 100 mg 03/18/20 22:00 03/19/20 21:25 Desyrel - PO 100 mg HS ARANZA Administration ASSESSMENT/PLAN: 59 y/o female PMH MS, asthma, and sarcoidosis, presented with BL LE pain and weakness, admitted for acute MS flair. # BL LE weakness and pain - most likely 2/2 an acute MS flair - neuro following, recs appreciated Solumedrol 250 mg IV q6h Pending further recs regarding steroid therapy. - Continue home meds: Copaxone, 3days/week - PT evaluated today # Ua suggestive of a UTI - UCx: strep agalactia GB, 30,000-40,000 CFU, low colonies - started on Rocephin in ER, d/c'd abx due to low number of CFU #Migrain - Given fioricet without any relief, started Tramadol PRN #Insomnia - Continue trazodone, klonapine FEN - No standing fluids - Continue to monitor electrolytes - Regular diet DVT ppx - Lovenox Sq Disposition - Continue to monitor in MS, DC planning Visit type - Emergency Visit Emergency Visit: Yes ED Registration Date: 03/16/20 Care time: The patient presented to the Emergency Department on the above date and was hospitalized for further evaluation of their emergent condition. - New Patient This patient is new to me today: No - Critical Care Critical Care patient: No - Discharge Referral Referred to [facility] No ATTENDING PHYSICIAN STATEMENT I saw and evaluated the patient. I reviewed the resident's note and discussed the case with the resident. I agree with the resident's findings and plan as documented. SUBJECTIVE: OBJECTIVE: ASSESSMENT AND PLAN:
[2020-03-20] MEDS ORDERED: amLODIPine BESYLATE 2.5 MG TABLET (FP) PO ONE (17:56)
--- NOTE | 2020-03-20 18:23 | PN ---
Teaching Attending Note Name of Resident: Darryn Villegas ATTENDING PHYSICIAN STATEMENT I saw and evaluated the patient. I reviewed the resident's note and discussed the case with the resident. I agree with the resident's findings and plan as documented. SUBJECTIVE: Patient is improving with NAD OBJECTIVE: Vital Signs Temperature 98.5 F 03/20/20 14:00 Pulse Rate 82 03/20/20 14:00 Respiratory Rate 18 03/20/20 14:00 Blood Pressure 164/97 03/20/20 14:00 O2 Sat by Pulse Oximetry (%) 95 03/20/20 14:00 PE: per resident's note CBCD WBC 11.6 K/mm3 (4.0-10.0) H 03/20/20 08:05 RBC 4.00 M/mm3 (3.60-5.2) 03/20/20 08:05 Hgb 13.1 GM/dL (10.7-15.3) 03/20/20 08:05 Hct 38.4 % (32.4-45.2) 03/20/20 08:05 MCV 95.9 fl (80-96) 03/20/20 08:05 MCHC 34.3 g/dl (32.0-36.0) 03/20/20 08:05 RDW 13.2 % (11.6-15.6) 03/20/20 08:05 Plt Count 158 K/MM3 (134-434) D 03/20/20 08:05 MPV 10.3 fl (7.5-11.1) 03/20/20 08:05 CMP Sodium 140 mmol/L (136-145) 03/20/20 08:05 Potassium 3.6 mmol/L (3.5-5.1) 03/20/20 08:05 Chloride 105 mmol/L (98-107) 03/20/20 08:05 Carbon Dioxide 25 mmol/L (21-32) 03/20/20 08:05 Anion Gap 10 MMOL/L (8-16) 03/20/20 08:05 BUN 20.4 mg/dL (7-18) H 03/20/20 08:05 Creatinine 0.9 mg/dL (0.55-1.3) 03/20/20 08:05 Random Glucose 143 mg/dL (74-106) H 03/20/20 08:05 Calcium 9.1 mg/dL (8.5-10.1) 03/20/20 08:05 Total Bilirubin 0.4 mg/dL (0.2-1) 03/20/20 08:05 AST 15 U/L (15-37) 03/20/20 08:05 ALT 29 U/L (13-61) 03/20/20 08:05 Alkaline Phosphatase 59 U/L (45-117) 03/20/20 08:05 Total Protein 7.0 g/dl (6.4-8.2) 03/20/20 08:05 Albumin 3.7 g/dl (3.4-5.0) 03/20/20 08:05 Current Medications Generic Name Dose Route Start Last Admin Trade Name Freq PRN Reason Stop Dose Admin Baclofen 10 mg 03/18/20 00:18 03/20/20 15:47 Lioresal - PO 10 mg QID ARANZA Administration Clonazepam 0.75 mg 03/18/20 22:00 03/19/20 21:25 Klonopin - PO 0.75 mg HS ARANZA Administration Enoxaparin Sodium 40 mg 03/17/20 10:00 03/20/20 09:00 Lovenox - SQ 40 mg DAILY ARANZA Administration Fluoxetine HCl 40 mg 03/19/20 14:30 03/20/20 09:00 Prozac - PO 40 mg DAILY AARNZA Administration Methylprednisolone Sodium Succinate 250 mg 03/17/20 15:00 03/20/20 15:47 Solu-Medrol - IVPB 250 mg Q6H-IV ARANZA Administration Non-Formulary Medication 40 mg 03/18/20 17:45 03/20/20 15:49 Glatiramer Acetate [Copaxone] SQ 40 mg SuTuTh@1000 ARANZA Administration Pantoprazole Sodium 40 mg 03/17/20 10:00 03/20/20 09:00 Protonix - PO 40 mg DAILY ARANZA Administration Polyethylene Glycol 17 gm 03/20/20 22:00 Miralax (For Daily Use) - PO BID ARANZA Senna 1 tab 03/20/20 22:00 Senna - PO BID ARANZA Tramadol HCl 50 mg 03/19/20 11:51 03/20/20 08:57 Ultram - PO 50 mg Q6H PRN Administration PAIN LEVEL 6-10 Trazodone HCl 100 mg 03/18/20 22:00 03/19/20 21:25 Desyrel - PO 100 mg HS [facility] Administration Home Medications Medication Instructions Recorded Baclofen 10 mg PO QID 03/17/20 Glatiramer Acetate [Copaxone] 40 mg SQ ASDIR 03/17/20 Sennosides [Senna] 8.6 mg PO HS 03/17/20 traZODone HCL [Trazodone HCl] 100 mg PO HS 03/17/20 Fluoxetine HCl [Prozac] 40 mg PO DAILY 03/18/20 Clonazepam 0.25 mg PO DAILY 03/19/20 Clonazepam 0.75 mg PO HS 03/19/20 Microbiology 03/17/20 07:40 Urine - Urine Clean Catch Urine Culture - Final Strep Agalactiae Group B ASSESSMENT AND PLAN: This patient is a 59yof with PMhx of asthma, pulm sarcoidosis and MS , who is admitted for having MS flare , with generalized weakness and LE weaKNESS. # MS fare : strength IS IMPROVINMG, CONTINUE iv STEROID FOR ANOTHER DAY , CONTINUE HOME copaxone 3/week. cont PT eval. # pyuria with no dysuria : urine cx with low colonies. dc Abx # CHRONIC back pain : tramadol prn # Insomnia: give trazodone an her home klonapine # depression , resume her prozac # elevated sugars and HTN due to juan luis dose steroids, monitor sugar and if needed will give SSI . #HTN Uncontrolled : will give 5mg norvasc # constipation :miralax daily , senna dvt px :SCds
[2020-03-20] MEDS ORDERED: amLODIPine BESYLATE 2.5 MG TABLET (FP) PO STA (22:33)
[2020-03-20] MEDS: clonazePAM 0.5 MG TABLET PO SCH (23:41)
[2020-03-20] MEDS: traZODone HCL 100 MG TABLET (FP) PO SCH (23:41)
[2020-03-20] MEDS: SENNOSIDES 8.6MG TABLET (FP) PO SCH (23:41)
[2020-03-21] MEDS: methylPREDNISolone NA SUCC 125 MG/2 ML VIAL IVPB SCH ×3 (02:45→14:46)
[2020-03-21 08:34] LABS: BASO % 0.1 % (0-2.0); EOS % 0.1 % (0-4.5); HEMATOCRIT 35.6 % (32.4-45.2); HEMOGLOBIN 12.3 GM/dL (10.7-15.3); LYMPH % 5.2 % (8-40); MCH 33.1 pg (25.7-33.7); MCHC 34.6 g/dl (32.0-36.0); MEAN CELL VOLUME 95.7 fl (80-96); MEAN PLT VOLUME 10.4 fl (7.5-11.1); MONO % 1.8 % (3.8-10.2); NEUT % 92.8 % (42.8-82.8); PLATELET COUNT 138 K/MM3 (134-434); RBC 3.72 M/mm3 (3.60-5.2); RDW 13.3 % (11.6-15.6); WHITE BLOOD COUNT 6.9 K/mm3 (4.0-10.0)
[2020-03-21 08:52] LABS: ALBUMIN 3.5 g/dl (3.4-5.0); BILIRUBIN,TOTAL 0.3 mg/dL (0.2-1); BLOOD UREA NITROGEN 14.2 mg/dL (7-18); CALCIUM 8.7 mg/dL (8.5-10.1); CREATININE 0.7 mg/dL (0.55-1.3); MAGNESIUM 2.5 mg/dL (1.8-2.4); PHOSPHOROUS 2.7 mg/dL (2.5-4.9); POTASSIUM 4.5 mmol/L (3.5-5.1); TOT PROT 6.2 g/dl (6.4-8.2)
[2020-03-21] MEDS ORDERED: traMADol HCL 50 MG TABLET PO PRN (09:16)
[2020-03-21] MEDS: PANTOPRAZOLE 40 MG TABLET PO SCH (09:59)
[2020-03-21] MEDS: SENNOSIDES 8.6MG TABLET (FP) PO SCH (09:59)
[2020-03-21] MEDS: BACLOFEN 10 MG TABLET (FP) PO SCH ×3 (09:59→18:06)
--- NOTE | 2020-03-21 09:59 | EKG ---
Test Reason : Blood Pressure : / mmHG Vent. Rate : 100 BPM Atrial Rate : 100 BPM P-R Int : 144 ms QRS Dur : 142 ms QT Int : 394 ms P-R-T Axes : 080 002 112 degrees QTc Int : 508 ms NORMAL SINUS RHYTHM LEFT BUNDLE BRANCH BLOCK ABNORMAL ECG WHEN COMPARED WITH ECG OF 16-MAR-2020 18:57, VENT. RATE HAS INCREASED BY 42 BPM LEFT BUNDLE BRANCH BLOCK IS NOW PRESENT Confirmed by Aries Wilcox ([id number]) on 03/21/2020 9:59:02 AM Referred By: Confirmed By:Aries Wilcox
[2020-03-21] MEDS ORDERED: amLODIPine BESYLATE 2.5 MG TABLET (FP) PO SCH (10:00)
[2020-03-21] MEDS: ENOXAPARIN NA (PORCINE) 40 MG/0.4 ML DISP.SYRIN SQ SCH (10:00)
[2020-03-21] MEDS: POLYETHYLENE GLYCOL 3350 119 GM BTL PO SCH (10:01)
[2020-03-21] MEDS ORDERED: PT OWN MED DRAWER 7, Y5N ONE (10:04)
[2020-03-21] MEDS: FLUoxetine HCL 20 MG CAPSULE PO SCH (10:04)
[2020-03-21] MEDS ORDERED: amLODIPine BESYLATE 5 MG TABLET (FP) PO SCH (10:30)
[2020-03-21 13:05] LABS: PLATELET ESTIMATE SLT DECREASE
--- NOTE | 2020-03-21 16:32 | DS ---
Physical Exam: SUBJECTIVE: Patient seen and examined at bedside, reports improvement of b/l LE weakness/strength. Denies any fever OBJECTIVE: Vital Signs Period Temp Pulse Resp BP Sys/Adams Pulse Ox Last 24 Hr 97.7 F-99.2 F 77-99 20-20 148-171/77-98 94-98 PHYSICAL EXAM GENERAL: AAOx3, in no acute distress HEENT: NCAT, PERRLA, EOMI, sclera anicteric, conjunctiva clear, oropharynx clear w/o exudates. MMM. NECK: Normal ROM, supple, no lymphadenopathy, JVD, or masses LUNGS: CTABL no wheezes/ rhonchi/ rales. No distress, speaks in full sentences. No increased work of breathing. HEART: RRR, normal S1 S2, no M/R/G, peripheral pulses 2+ and equal b/l ABDOMEN: Soft, non-tender, + BS. No guarding or rebound. No hepatomegaly or splenomegaly. MSK: ROM WNL, NO CVA tenderness EXTREMITIES: Normal inspection. No peripheral edema. No clubbing or cyanosis. NEUROLOGICAL: CN II-XII intact. Normal speech, gait not observed, no focal sensorimotor deficits. Strength : 5/5 b/l UE, RLE- 4/5 with hip flexion, 4/5 knee flexion/extension, LLE-4/5 with hip flexion, 4/5 with knee flexion /extension, DTEs +2 in all extremities PSYCH: Normal mood, normal affect. SKIN: Warm, Dry, normal turgor, no rashes or lesions noted LABS Laboratory Results - last 24 hr 03/20/20 03/21/20 03/21/20 17:07 06:07 07:40 WBC 6.9 RBC 3.72 Hgb 12.3 Hct 35.6 MCV 95.7 MCH 33.1 MCHC 34.6 RDW 13.3 Plt Count 138 MPV 10.4 Absolute Neuts (auto) 6.4 Total Counted 100 Neutrophils % 92.8 H Neutrophils % (Manual) 94.0 H Lymphocytes % 5.2 L D Lymphocytes % (Manual) 6.0 L D Monocytes % 1.8 L Eosinophils % 0.1 D Basophils % 0.1 Nucleated RBC % 0 Platelet Estimate Slt decrease Sodium Potassium Chloride Carbon Dioxide Anion Gap BUN Creatinine Est GFR (CKD-EPI)AfAm Est GFR (CKD-EPI)NonAf POC Glucometer 132 148 Random Glucose Calcium Phosphorus Magnesium Total Bilirubin AST ALT Alkaline Phosphatase Total Protein Albumin 03/21/20 07:40 WBC RBC Hgb Hct MCV MCH MCHC RDW Plt Count MPV Absolute Neuts (auto) Total Counted Neutrophils % Neutrophils % (Manual) Lymphocytes % Lymphocytes % (Manual) Monocytes % Eosinophils % Basophils % Nucleated RBC % Platelet Estimate Sodium 141 Potassium 4.5 Chloride 106 Carbon Dioxide 29 Anion Gap 6 L BUN 14.2 Creatinine 0.7 Est GFR (CKD-EPI)AfAm 111.47 Est GFR (CKD-EPI)NonAf 96.18 POC Glucometer Random Glucose 146 H Calcium 8.7 Phosphorus 2.7 Magnesium 2.5 H Total Bilirubin 0.3 AST 23 ALT 38 Alkaline Phosphatase 49 Total Protein 6.2 L Albumin 3.5 HOSPITAL COURSE: Date of Admission:03/16/20 59 y/o female PMH MS, asthma, and sarcoidosis, presented with BL LE pain and weakness, admitted for acute MS flare with generalized weakness and b/l LE weakness/pain. MRI was done, which confirmed chronic demyelinating process. Neurology was consulted for further recommendations. Started her on Solumedrol 250 mg IV q6h (1gm/Day) and Continue home med Copaxone, 3days/week. During hospital stay, her weakness improved, she reported improvement of her pain and weakness in b/l LEs, discussed steroids therapy with Neurology, who recommended steroid taper with discharge. Patient may have been exposed to COVID 19 while she was in the hospital, Covid PCR was repeated, will call the patient with results. She was advised to self quarantine and provided detailed instructions regarding Covid exposure. Patient is clinically stable for discharge and discharged her with instructions, referrals, and prescriptions as indicated below. Date of Discharge: 03/21/20 Minutes to complete discharge: 36 Discharge Summary Problems reviewed: Yes Reason For Visit: EXACERBATION OF MULTIPLE SCLEROSIS Current Active Problems Extremity pain (Acute) Gait difficulty (Acute) Multiple sclerosis exacerbation (Acute) UTI (urinary tract infection) (Acute) Condition: Good - Instructions Diet, Activity, Other Instructions: YOUR VISIT You came to the hospital because you were experiencing pain and weakness of legs. You were admitted to the hospital for care of these symptoms. You are now stable and may return home. MEDICATIONS Please continue to take your home medications as prescribed. You have *NEW* mediations. Please START taking a steroid taper as follows: Day #1 03/22, you will take 6 pills. Each are 10mg. Total dose is 60mg Day #2 03/23, you will take 6 pills. Each are 10mg. Total dose is 60mg Day #3 03/24, you will take 5 pills. Each are 10mg. Total dose is 50mg Day #4 03/25, you will take 5 pills. Each are 10mg. Total dose is 50mg Day #5 03/26, you will take 4 pills. Each are 10mg. Total dose is 40mg Day #6 03/27, you will take 4 pills. Each are 10mg. Total dose is 40mg Day #7 03/28, you will take 3 pills. Each are 10mg. Total dose is 30mg Day #8 03/29, you will take 3 pills. Each are 10mg. Total dose is 30mg Day #9 03/30, you will take 2 pills. Each are 10mg. Total dose is 20mg Day #10 03/31, you will take 2 pills. Each are 10mg. Total dose is 20mg Day #11 04/01, you will take 1 pills. Each are 10mg. Total dose is 10mg Day #12 04/02, you will take 1 pills. Each are 10mg. Total dose is 10mg Please START taking protonix 40 mg daily for the next 14 days Please START taking Norvasc 5mg daily for the next 30 days, please follow up with your primary care provider for repeat blood pressure measurements Please START taking Miralax 17gm two times a day, UNTIL you have a bowel movement, then continue to take it once per day. ADDITIONAL CARE Please make an appointment to see your primary care provider 2 week from today. If you would like to continue care at our clinic, you can call to schedule an appointment at the [facility] residents' clinic, located at [address] [place] [address]. Please make an appointment to see your neurologist within 2 week to discuss the the hospital course and for further evaluation and management of your MS If you do not have a neurologist, you can follow up with , [phone], please call and schedule an appointment within 1 week. ADDITIONAL INFORMATION You MAY have been possibly exposed to COVID-19 while you were in the hospital. We have repeated the COVID swab, we will call you back with the results at [phone]. Meanwhile, we have provided you with some detailed instructions, please read carefully. Additionally, - When you are leaving the hospital today, Please sit in the back seat of the vehicle, wear a mask, and keep the windows open. - Please quarantine yourself for 14 days, do not leave your house, if you must leave your house (ex: for doctors appointment) please make sure to wear a mask. - Please wash your hands regularly. Avoid touching your face. Maintain 6 feet between you and others. Wear a mask when outside your home. - If you develop high fevers, chills, cough, SOB, please return to ER for further evaluations. Please call 911 or come directly to the emergency department if you experience recurrence of the symptoms that brought you to the hospital, unusual headache, vision change, shortness of breath, chest pain, numbness, tingling, loss of alertness/awareness, loss of function, unusual bleeding or any alarming symptoms Referrals: Dalton Davis MD [Staff Physician] - 2 Weeks ON STAFF,NOT [Primary Care Provider] - 2 Weeks (Hospital course and labs) Darrell Nam MD [Staff Physician] - 2 Weeks (MS follow up, Hospital course) Disposition: HOME - Home Medications Comprehensive Discharge Medication List: Ambulatory Orders Baclofen 10 mg PO QID 03/17/20 Glatiramer Acetate [Copaxone] 40 mg SQ ASDIR 03/17/20 Sennosides [Senna] 8.6 mg PO HS 03/17/20 traZODone HCL [Trazodone HCl] 100 mg PO HS 03/17/20 Fluoxetine HCl [Prozac] 40 mg PO DAILY 03/18/20 Clonazepam 0.25 mg PO DAILY 03/19/20 Clonazepam 0.75 mg PO HS 03/19/20 Amlodipine Besylate [Norvasc -] 5 mg PO DAILY #30 tablet 03/21/20 Pantoprazole Sodium [Protonix -] 40 mg PO DAILY #14 tablet.ec 03/21/20 Polyethylene Glycol 3350 [Miralax 119 gm Btl -] 17 gm PO BID #28 bottle 03/21/20 predniSONE [Deltasone -] See Taper PO ASDIR #42 tab 03/21/20 This patient is new to me today: No Emergency Visit: Yes ED Registration Date: 03/16/20 Care time: The patient presented to the Emergency Department on the above date and was hospitalized for further evaluation of their emergent condition. Critical Care patient: No - Discharge Referral Referred to [facility] No ATTENDING PHYSICIAN STATEMENT I saw and evaluated the patient. I reviewed the resident's note and discussed the case with the resident. I agree with the resident's findings and plan as documented. SUBJECTIVE: OBJECTIVE: ASSESSMENT AND PLAN:
--- NOTE | 2020-03-21 16:33 | PN ---
Teaching Attending Note Name of Resident: Darryn Villegas ATTENDING PHYSICIAN STATEMENT I saw and evaluated the patient. I reviewed the resident's note and discussed the case with the resident. I agree with the resident's findings and plan as documented. SUBJECTIVE: Patient is feeling better with nad. nO FURTHER HEADACHE. OBJECTIVE: Initial Vital Signs Temp Pulse Resp BP Pulse Ox 98.1 F 77 17 105/56 L 99 03/16/20 17:46 03/16/20 17:46 03/16/20 17:46 03/16/20 17:46 03/16/20 17:46 Vital Signs Temperature 98.4 F 03/21/20 14:00 Pulse Rate 79 03/21/20 14:00 Respiratory Rate 20 03/21/20 14:00 Blood Pressure 148/91 03/21/20 14:00 O2 Sat by Pulse Oximetry (%) 95 03/21/20 14:00 PE: PER RESIDENT'S NOTE CBCD WBC 6.9 K/mm3 (4.0-10.0) 03/21/20 07:40 RBC 3.72 M/mm3 (3.60-5.2) 03/21/20 07:40 Hgb 12.3 GM/dL (10.7-15.3) 03/21/20 07:40 Hct 35.6 % (32.4-45.2) 03/21/20 07:40 MCV 95.7 fl (80-96) 03/21/20 07:40 MCHC 34.6 g/dl (32.0-36.0) 03/21/20 07:40 RDW 13.3 % (11.6-15.6) 03/21/20 07:40 Plt Count 138 K/MM3 (134-434) 03/21/20 07:40 MPV 10.4 fl (7.5-11.1) 03/21/20 07:40 CMP Sodium 141 mmol/L (136-145) 03/21/20 07:40 Potassium 4.5 mmol/L (3.5-5.1) 03/21/20 07:40 Chloride 106 mmol/L (98-107) 03/21/20 07:40 Carbon Dioxide 29 mmol/L (21-32) 03/21/20 07:40 Anion Gap 6 MMOL/L (8-16) L 03/21/20 07:40 BUN 14.2 mg/dL (7-18) 03/21/20 07:40 Creatinine 0.7 mg/dL (0.55-1.3) 03/21/20 07:40 Random Glucose 146 mg/dL (74-106) H 03/21/20 07:40 Calcium 8.7 mg/dL (8.5-10.1) 03/21/20 07:40 Total Bilirubin 0.3 mg/dL (0.2-1) 03/21/20 07:40 AST 23 U/L (15-37) 03/21/20 07:40 ALT 38 U/L (13-61) 03/21/20 07:40 Alkaline Phosphatase 49 U/L (45-117) 03/21/20 07:40 Total Protein 6.2 g/dl (6.4-8.2) L 03/21/20 07:40 Albumin 3.5 g/dl (3.4-5.0) 03/21/20 07:40 Current Medications Generic Name Dose Route Start Last Admin Trade Name Marzena PRN Reason Stop Dose Admin Amlodipine Besylate 5 mg 03/21/20 10:30 03/21/20 12:12 Norvasc - PO 5 mg DAILY ARANZA Administration Baclofen 10 mg 03/18/20 00:18 03/21/20 14:47 Lioresal - PO 10 mg QID ARANZA Administration Clonazepam 0.75 mg 03/18/20 22:00 03/20/20 23:41 Klonopin - PO 0.75 mg HS ARANZA Administration Enoxaparin Sodium 40 mg 03/17/20 10:00 03/21/20 10:00 Lovenox - SQ Not Given DAILY ARANZA Fluoxetine HCl 40 mg 03/19/20 14:30 03/21/20 10:04 Prozac - PO 40 mg DAILY ARANZA Administration Methylprednisolone Sodium Succinate 250 mg 03/17/20 15:00 03/21/20 14:46 Solu-Medrol - IVPB 250 mg Q6H-IV ARANZA Administration Non-Formulary Medication 40 mg 03/18/20 17:45 03/20/20 15:49 Glatiramer Acetate [Copaxone] SQ 40 mg [id number]@1000 ARANZA Administration Pantoprazole Sodium 40 mg 03/17/20 10:00 03/21/20 09:59 Protonix - PO 40 mg DAILY ARANZA Administration Polyethylene Glycol 17 gm 03/20/20 22:00 03/21/20 10:01 Miralax (For Daily Use) - PO 17 gm BID ARANZA Administration Senna 1 tab 03/20/20 22:00 03/21/20 09:59 Senna - PO 1 tab BID ARANZA Administration Trazodone HCl 100 mg 03/18/20 22:00 03/20/20 23:41 Desyrel - PO 100 mg HS ARANZA Administration Home Medications Medication Instructions Recorded Baclofen 10 mg PO QID 03/17/20 Glatiramer Acetate [Copaxone] 40 mg SQ ASDIR 03/17/20 Sennosides [Senna] 8.6 mg PO HS 03/17/20 traZODone HCL [Trazodone HCl] 100 mg PO HS 03/17/20 Fluoxetine HCl [Prozac] 40 mg PO DAILY 03/18/20 Clonazepam 0.25 mg PO DAILY 03/19/20 Clonazepam 0.75 mg PO HS 03/19/20 Amlodipine Besylate [Norvasc -] 5 mg PO DAILY #30 tablet 03/21/20 Pantoprazole Sodium [Protonix -] 40 mg PO DAILY #14 tablet.ec 03/21/20 Polyethylene Glycol 3350 [Miralax 17 gm PO BID #28 bottle 03/21/20 119 gm Btl -] predniSONE [Deltasone -] See Taper PO ASDIR #42 tab 03/21/20 Microbiology 03/17/20 07:40 Urine - Urine Clean Catch Urine Culture - Final Strep Agalactiae Group B ASSESSMENT AND PLAN: This patient is a 59yof with PMhx of asthma, pulm sarcoidosis and MS , who is admitted for having MS flare , with generalized weakness and LE weaKNESS. # MS britt : strength IS IMPROVINMG, CONTINUE iv STEROID FOR ANOTHER DAY , CONTINUE HOME copaxone 3/week. . # pyuria with no dysuria : urine cx with low colonies. dc Abx # CHRONIC back pain : tramadol prn , continue home pain medication # Insomnia: give trazodone an her home klonapine # depression , resume her prozac # elevated sugars : the last dose of high steroid is today , will dc her on a tapered dose steroid, discussed with dr Nam, to taper down ; starting with 60mg for 12 days taper ; [id number] ; 2days each dose #HTN Uncontrolled : continue with 5mg norvasc follow up with the resident's clinic or f/u with your primary # constipation :miralax daily , yun yates patient home.
[2020-03-21 18:17] VITALS: BP 150/78; PULSE 77; TEMP 98.1
== END 2020-03-21 18:22 | disposition home or self-care (01) | DRG 59 ==
LOC: JER 17:15 → JERBED 19:36 → J8W 03-18 01:08 → J5S 03-19 20:15
PROVIDERS: ADMIT Internal Medicine; ATTEND Internal Medicine
DX: G35 Multiple sclerosis (principal); N39.0 Urinary tract infection, site not specified; R26.2 Difficulty in walking, not elsewhere classified; G43.909 Migraine, unspecified, not intractable, without status migrainosus; R73.9 Hyperglycemia, unspecified; J45.909 Unspecified asthma, uncomplicated; D86.0 Sarcoidosis of lung; B95.1 Streptococcus, group B, as the cause of diseases classified elsewhere; G47.00 Insomnia, unspecified; I10 Essential (primary) hypertension; K59.09 Other constipation; F32.9 Major depressive disorder, single episode, unspecified; M54.9 Dorsalgia, unspecified
CPT/HCPCS: 36415; 70553-TC; 71045-TC-FY; 80053; 81003; 82962; 83735; 84100; 84443; 84703; 85025; 87077; 87086; 93005; 93010; 97116-GP; 97161-GP; 99285-25; A9579; J0475; U0003

== ENCOUNTER 2020-06-04 14:11 | Inpatient (IN) | payer OTHER, BC ==
[2020-06-04] MEDS ORDERED: methylPREDNISolone NA SUCC 125 MG/2 ML VIAL IVPUSH ONE ×2 (15:02→17:50)
[2020-06-04] MEDS ORDERED: ACETAMINOPHEN 500 MG TABLET (FP) PO ONE (15:06)
[2020-06-04] MEDS ORDERED: methylPREDNISolone NA SUCC 125 MG/2 ML VIAL ONE ×2 (15:23→22:22)
[2020-06-04] MEDS ORDERED: ACETAMINOPHEN 325 MG TABLET (FP) ONE (15:23)
[2020-06-04 15:56] LABS: BASO % 1.5 % (0-2.0); EOS % 4.4 % (0-4.5); HEMATOCRIT 37.8 % (32.4-45.2); HEMOGLOBIN 12.7 GM/dL (10.7-15.3); LYMPH % 35.2 % (8-40); MCH 32.3 pg (25.7-33.7); MCHC 33.6 g/dl (32.0-36.0); MEAN CELL VOLUME 96.3 fl (80-96); MEAN PLT VOLUME 9.6 fl (7.5-11.1); MONO % 7.4 % (3.8-10.2); NEUT % 51.5 % (42.8-82.8); PLATELET COUNT 190 K/MM3 (134-434); RBC 3.93 M/mm3 (3.60-5.2); RDW 13.5 % (11.6-15.6); WHITE BLOOD COUNT 4.8 K/mm3 (4.0-10.0)
[2020-06-04 16:15] LABS: CHLORIDE 106 mmol/L (98-107); POTASSIUM 4.3 mmol/L (3.5-5.1); SODIUM 140 mmol/L (136-145)
[2020-06-04 16:18] LABS: ALBUMIN 3.7 g/dl (3.4-5.0); ANION GAP 8 MMOL/L (8-16); BLOOD UREA NITROGEN 10.8 mg/dL (7-18); CALCIUM 8.8 mg/dL (8.5-10.1); CO2 26 mmol/L (21-32); GLUCOSE,RANDOM 91 mg/dL (74-106); MAGNESIUM 2.1 mg/dL (1.8-2.4)
[2020-06-04 16:21] LABS: CREATININE 0.6 mg/dL (0.55-1.3); PHOSPHOROUS 3.6 mg/dL (2.5-4.9); SGOT/AST 22 U/L (15-37); SGPT/ALT 17 U/L (13-61)
[2020-06-04 16:23] LABS: ALK PHOS 55 U/L (45-117); BILIRUBIN,TOTAL 0.6 mg/dL (0.2-1); TOT PROT 6.5 g/dl (6.4-8.2)
[2020-06-04 16:40] LABS: ERYTHROCYTE SEDIMENTATION RATE 9 mm/hr (0-30)
[2020-06-04] MEDS ORDERED: HEPARIN NA (PORCINE) 5,000 UNITS/ML 1ML VIAL SQ SCH ×2 (18:00→18:14)
[2020-06-04] MEDS ORDERED: HEPARIN NA (PORCINE) 5,000 UNITS/ML 1ML VIAL ONE ×2 (18:12→22:22)
[2020-06-04] MEDS ORDERED: ACETAMINOPHEN 1000 MG/100 ML VIAL (NON FORMULARY) IVPB ONE (22:03)
[2020-06-04] MEDS ORDERED: ACETAMINOPHEN INJECTION 100 ML IVPB ONE (22:21)
[2020-06-04] MEDS: methylPREDNISolone NA SUCC 125 MG/2 ML VIAL IVPUSH SCH (22:38)
[2020-06-04] MEDS ORDERED: PATIENT'S OWN MEDICATION (NON-FORMULARY) (Glatiramer Acetate [Copaxone] 40 MG/ML Syringe) SQ SCH (23:00)
[2020-06-05] MEDS ORDERED: clonazePAM 0.5 MG TABLET ONE (01:14)
[2020-06-05] MEDS: clonazePAM 0.5 MG TABLET PO SCH ×3 (01:19→21:08)
[2020-06-05] MEDS: traZODone HCL 100 MG TABLET (FP) PO SCH ×2 (01:19→21:08)
[2020-06-05 01:55] LABS: EPI CELLS 12 /uL (0-25.1); HYALINE CASTS 8 /uL (0-3.1); PH,URINE 6.5 (5.0-8.0); URINE APPEARANCE CLOUDY; URINE BACTERIA >9,000 /uL (0-1359); URINE BILIRUBIN NEGATIVE (NEGATIVE); URINE COLOR YELLOW; URINE GLUCOSE (UA) NEGATIVE (NEGATIVE); URINE KETONE NEGATIVE (NEGATIVE); URINE LEUK ESTERASE 1+ (NEGATIVE); URINE NITRITE NEGATIVE (NEGATIVE); URINE PROTEIN NEGATIVE (NEGATIVE); URINE RBC 6 /uL (0-23.9); URINE UROBILINOGEN 0.2 mg/dL (0.2-1.0); URINE WBC 181 /uL (0-25.8)
[2020-06-05] MEDS ORDERED: CEFTRIAXONE 1,000 MG in DEXTROSE 5%-WATER - 50 ML IVPB ONE (03:24)
[2020-06-05] MEDS ORDERED: methylPREDNISolone NA SUCC 125 MG/2 ML VIAL ONE (03:28)
[2020-06-05] MEDS: methylPREDNISolone NA SUCC 125 MG/2 ML VIAL IVPUSH SCH ×4 (03:36→20:01)
[2020-06-05 08:21] LABS: BASO % 0.2 % (0-2.0); HEMATOCRIT 38.8 % (32.4-45.2); LYMPH % 14.5 % (8-40); MCH 31.9 pg (25.7-33.7); MCHC 33.6 g/dl (32.0-36.0); MEAN PLT VOLUME 9.9 fl (7.5-11.1); MONO % 0.5 % (3.8-10.2); NEUT % 84.8 % (42.8-82.8); PLATELET COUNT 177 K/MM3 (134-434); RBC 4.08 M/mm3 (3.60-5.2); RDW 13.5 % (11.6-15.6); WHITE BLOOD COUNT 6.8 K/mm3 (4.0-10.0)
[2020-06-05 09:01] LABS: POTASSIUM 3.8 mmol/L (3.5-5.1)
[2020-06-05 09:06] LABS: CALCIUM 9.2 mg/dL (8.5-10.1)
[2020-06-05 09:07] LABS: ALBUMIN 3.9 g/dl (3.4-5.0); MAGNESIUM 2.3 mg/dL (1.8-2.4)
[2020-06-05 09:08] LABS: CREATININE 0.7 mg/dL (0.55-1.3)
[2020-06-05 09:10] LABS: BILIRUBIN,TOTAL 0.8 mg/dL (0.2-1); PHOSPHOROUS 3.1 mg/dL (2.5-4.9); TOT PROT 6.8 g/dl (6.4-8.2)
[2020-06-05] MEDS ORDERED: cefTRIAXone SODIUM 1 GM VIAL ONE (09:54)
[2020-06-05] MEDS ORDERED: DEXTROSE 5%-WATER - 50 ML IVPB ONE (09:54)
[2020-06-05] MEDS: PANTOPRAZOLE 40 MG TABLET PO SCH (09:57)
[2020-06-05] MEDS: FLUoxetine HCL 20 MG CAPSULE PO SCH (09:57)
[2020-06-05] MEDS: ENOXAPARIN NA (PORCINE) 40 MG/0.4 ML DISP.SYRIN SQ SCH (09:58)
[2020-06-05] MEDS: POLYETHYLENE GLYCOL 3350 119 GM BTL PO SCH ×2 (10:04→22:05)
[2020-06-05] MEDS: CEFTRIAXONE 1 GM in DEXTROSE 5%-WATER - 50 ML IVPB SCH (10:04)
[2020-06-05] MEDS: traMADol HCL 50 MG TABLET PO PRN (10:07)
[2020-06-05] MEDS ORDERED: ACETAMINOPHEN 500 MG TABLET (FP) PO PRN (14:51)
[2020-06-05] MEDS: SENNOSIDES 8.6MG TABLET (FP) PO SCH (21:07)
[2020-06-05] MEDS ORDERED: traZODone HCL 150 MG TABLET PO SCH (22:00)
[2020-06-05] MEDS ORDERED: clonazePAM 0.25 MG ODT TABLETS PO SCH (22:00)
[2020-06-06] MEDS: methylPREDNISolone NA SUCC 125 MG/2 ML VIAL IVPUSH SCH ×4 (03:13→22:05)
[2020-06-06 08:19] LABS: BASO % 0.1 % (0-2.0); HEMATOCRIT 36.9 % (32.4-45.2); HEMOGLOBIN 12.1 GM/dL (10.7-15.3); LYMPH % 5.7 % (8-40); MCH 31.1 pg (25.7-33.7); MCHC 32.9 g/dl (32.0-36.0); MEAN CELL VOLUME 94.7 fl (80-96); MEAN PLT VOLUME 10.1 fl (7.5-11.1); MONO % 2.2 % (3.8-10.2); PLATELET COUNT 173 K/MM3 (134-434); RBC 3.89 M/mm3 (3.60-5.2); RDW 13.5 % (11.6-15.6); WHITE BLOOD COUNT 13.2 K/mm3 (4.0-10.0)
[2020-06-06 08:28] LABS: POTASSIUM 4.1 mmol/L (3.5-5.1)
[2020-06-06 08:34] LABS: ALBUMIN 3.8 g/dl (3.4-5.0); BLOOD UREA NITROGEN 21.2 mg/dL (7-18)
[2020-06-06 08:37] LABS: CREATININE 0.8 mg/dL (0.55-1.3)
[2020-06-06 08:38] LABS: BILIRUBIN,TOTAL 1.2 mg/dL (0.2-1); TOT PROT 6.4 g/dl (6.4-8.2)
[2020-06-06] MEDS ORDERED: DEXTROSE 5%-WATER - 50 ML IVPB ONE (09:57)
[2020-06-06] MEDS ORDERED: cefTRIAXone SODIUM 1 GM VIAL ONE (09:57)
[2020-06-06] MEDS: PANTOPRAZOLE 40 MG TABLET PO SCH (10:02)
[2020-06-06] MEDS: clonazePAM 0.5 MG TABLET PO SCH ×2 (10:02→22:07)
[2020-06-06] MEDS: FLUoxetine HCL 20 MG CAPSULE PO SCH (10:03)
[2020-06-06] MEDS: ENOXAPARIN NA (PORCINE) 40 MG/0.4 ML DISP.SYRIN SQ SCH (10:03)
[2020-06-06] MEDS: POLYETHYLENE GLYCOL 3350 119 GM BTL PO SCH ×2 (10:03→22:08)
[2020-06-06] MEDS: CEFTRIAXONE 1 GM in DEXTROSE 5%-WATER - 50 ML IVPB SCH (10:03)
[2020-06-06 11:46] LABS: ANISOCYTOSIS 0; MACROCYTOSIS 0; PLATELET ESTIMATE NORMAL
[2020-06-06] MEDS ORDERED: ALBUTEROL SO4 0.5 % INH SOLN 2.5 MG/0.5 ML VIAL.NEB. NEB PRN (13:55)
[2020-06-06 14:17] VITALS: BMI 17.4
[2020-06-06] MEDS: traMADol HCL 50 MG TABLET PO PRN ×2 (15:41→22:26)
[2020-06-06] MEDS: INSULIN SLIDING SCALE (NOVOLOG) 1 VIAL SQ SCH (16:56)
[2020-06-06] MEDS: SENNOSIDES 8.6MG TABLET (FP) PO SCH (22:06)
[2020-06-06] MEDS: LACTULOSE 20 GM/30 ML UDC (FOR ORAL USE ONLY) PO SCH (22:06)
[2020-06-06] MEDS: traZODone HCL 100 MG TABLET (FP) PO SCH (22:07)
[2020-06-07] MEDS: methylPREDNISolone NA SUCC 125 MG/2 ML VIAL IVPUSH SCH ×3 (02:37→15:06)
[2020-06-07] MEDS: INSULIN SLIDING SCALE (NOVOLOG) 1 VIAL SQ SCH ×3 (06:02→16:50)
[2020-06-07 08:17] LABS: BASO % 0.2 % (0-2.0); HEMATOCRIT 36.3 % (32.4-45.2); LYMPH % 1.3 % (8-40); MCH 31.4 pg (25.7-33.7); MCHC 32.9 g/dl (32.0-36.0); MEAN CELL VOLUME 95.2 fl (80-96); MEAN PLT VOLUME 9.9 fl (7.5-11.1); MONO % 1.7 % (3.8-10.2); NEUT % 96.8 % (42.8-82.8); PLATELET COUNT 155 K/MM3 (134-434); RBC 3.81 M/mm3 (3.60-5.2); RDW 13.5 % (11.6-15.6); WHITE BLOOD COUNT 11.1 K/mm3 (4.0-10.0)
[2020-06-07 08:32] LABS: POTASSIUM 4.1 mmol/L (3.5-5.1)
[2020-06-07 08:35] LABS: BLOOD UREA NITROGEN 25.6 mg/dL (7-18); CALCIUM 8.5 mg/dL (8.5-10.1)
[2020-06-07 08:39] LABS: CREATININE 0.9 mg/dL (0.55-1.3)
[2020-06-07] MEDS ORDERED: cefTRIAXone SODIUM 1 GM VIAL ONE (09:02)
[2020-06-07] MEDS ORDERED: DEXTROSE 5%-WATER - 50 ML IVPB ONE (09:02)
[2020-06-07] MEDS: clonazePAM 0.5 MG TABLET PO SCH ×2 (09:47→21:20)
[2020-06-07] MEDS: ENOXAPARIN NA (PORCINE) 40 MG/0.4 ML DISP.SYRIN SQ SCH (09:47)
[2020-06-07] MEDS: FLUoxetine HCL 20 MG CAPSULE PO SCH (09:47)
[2020-06-07] MEDS: PANTOPRAZOLE 40 MG TABLET PO SCH (09:47)
[2020-06-07] MEDS: LACTULOSE 20 GM/30 ML UDC (FOR ORAL USE ONLY) PO SCH ×2 (09:47→21:19)
[2020-06-07] MEDS: POLYETHYLENE GLYCOL 3350 119 GM BTL PO SCH ×2 (09:48→21:21)
[2020-06-07] MEDS: CEFTRIAXONE 1 GM in DEXTROSE 5%-WATER - 50 ML IVPB SCH (09:48)
[2020-06-07 09:55] LABS: ANISOCYTOSIS 0; MACROCYTOSIS 0; PLATELET ESTIMATE DECREASED
[2020-06-07] MEDS: traMADol HCL 50 MG TABLET PO PRN ×2 (15:12→21:19)
[2020-06-07] MEDS: SENNOSIDES 8.6MG TABLET (FP) PO SCH (21:20)
[2020-06-07] MEDS: traZODone HCL 100 MG TABLET (FP) PO SCH (21:20)
[2020-06-08] MEDS ORDERED: amLODIPine BESYLATE 5 MG TABLET (FP) PO ONE (05:26)
[2020-06-08] MEDS: INSULIN SLIDING SCALE (NOVOLOG) 1 VIAL SQ SCH ×3 (08:28→17:04)
[2020-06-08 08:53] LABS: BASO % 0.4 % (0-2.0); EOS % 0.1 % (0-4.5); HEMATOCRIT 39.4 % (32.4-45.2); LYMPH % 8.4 % (8-40); MCH 31.7 pg (25.7-33.7); MEAN CELL VOLUME 95.8 fl (80-96); MEAN PLT VOLUME 10.3 fl (7.5-11.1); MONO % 5.4 % (3.8-10.2); NEUT % 85.7 % (42.8-82.8); PLATELET COUNT 151 K/MM3 (134-434); RBC 4.11 M/mm3 (3.60-5.2); WHITE BLOOD COUNT 12.8 K/mm3 (4.0-10.0)
[2020-06-08] MEDS: LACTULOSE 20 GM/30 ML UDC (FOR ORAL USE ONLY) PO SCH (09:09)
[2020-06-08] MEDS: FLUoxetine HCL 20 MG CAPSULE PO SCH (09:09)
[2020-06-08] MEDS: clonazePAM 0.5 MG TABLET PO SCH (09:09)
[2020-06-08] MEDS: PANTOPRAZOLE 40 MG TABLET PO SCH (09:09)
[2020-06-08] MEDS: ENOXAPARIN NA (PORCINE) 40 MG/0.4 ML DISP.SYRIN SQ SCH (09:10)
[2020-06-08] MEDS: POLYETHYLENE GLYCOL 3350 119 GM BTL PO SCH (09:14)
[2020-06-08 09:16] LABS: POTASSIUM 4.1 mmol/L (3.5-5.1)
[2020-06-08 09:27] LABS: ALBUMIN 3.6 g/dl (3.4-5.0)
[2020-06-08 09:28] LABS: BLOOD UREA NITROGEN 17.8 mg/dL (7-18)
[2020-06-08 09:30] LABS: CREATININE 0.7 mg/dL (0.55-1.3)
[2020-06-08 09:32] LABS: BILIRUBIN,TOTAL 0.5 mg/dL (0.2-1); TOT PROT 6.4 g/dl (6.4-8.2)
[2020-06-08] MEDS ORDERED: predniSONE 20 MG TABLET (UD) PO SCH ×2 (10:00)
[2020-06-08 12:24] LABS: ANISOCYTOSIS 0; MACROCYTOSIS 1+; PLATELET ESTIMATE NORMAL
[2020-06-08 15:21] VITALS: BP 141/79; PULSE 74; TEMP 97.4
== END 2020-06-08 18:32 | disposition home or self-care (01) | DRG 59 ==
LOC: JER 14:11 → JERBED 16:45 → J8W 06-05 04:26
PROVIDERS: ATTEND Student in an Organized Health Care Education/Training Program
DX: G35 Multiple sclerosis (principal); N39.0 Urinary tract infection, site not specified; J45.909 Unspecified asthma, uncomplicated; E78.5 Hyperlipidemia, unspecified; E03.9 Hypothyroidism, unspecified; D86.0 Sarcoidosis of lung; R32 Unspecified urinary incontinence; R42 Dizziness and giddiness; K59.00 Constipation, unspecified
CPT/HCPCS: 36415; 71046-TC-FY; 80048; 80053; 81003; 82550; 82962; 83735; 84100; 84439; 84443; 85025; 85651; 86140; 87086; 87186; 93005; 93010; 97116-GP; 97161-GP; 99285-25; C9803; J0131; J1644; U0003